=== PATIENT | male | born 1955 | race Caucasian/White ===

== ENCOUNTER → 2018-12-14 | Outpatient (CLI) | payer BC ==
[~2018-12-14] MED LIST: AMLO-125 PO; CLON-327 PO; DAPA10TA PO; FERR325T24 PO; GLIP-175 PO; HYDR-2966 PO; HYDR12.561 PO; LOSA100T75 PO; METF-452 PO; OLME40TA28 PO; OMEG-164 PO; PANT40TA65 PO; ROSU5TAB8 PO; SERT-181 PO; SILD50TA5 PO; SITA1TAB17 PO; VALS160T8 PO; VARI50KI IM; VORT20TA PO
--- NOTE | 2018-12-14 10:52 | RADIOLOGY IMAGING REPORT ---
FAC[place] [facility] [place]IENT NAME: Kosta Desai : 1955 MR: [id number] V: [id number] EXAM DATE: ORDERING PHYSICIAN: VIOLET SMALLWOOD TECHNOLOGIST: [place] [facility] [place] Kosta Desai : 1955 Visit/Account:[id number] Date of Sevice: 12/14/2018 SHOULDER MIN 2 VIEWS LEFT Indication: left shoulder pain Comparison: None. Findings: The left clavicle, scapula, and proximal humerus are intact and demonstrate normal alignmen t. Visualized left ribs are normal. IMPRESSION: Normal left shoulder radiograph. Report Dictated By: Jorge Mcghee at 12/14/2018 10:47 AM Report E-Signed By: Jorge Mcghee at 12/14/2018 10:47 AM WSN:[id number]
== END ==
LOC: RAD 10:14
PROVIDERS: ATTEND Nurse Practitioner Family
DX: M25.512 Pain in left shoulder (principal)

== ENCOUNTER 2019-01-21 09:45 | Outpatient (RCR) | payer BC ==
--- NOTE | 2018-12-19 14:33 | PT INITIAL EVALUATION ---
MEDICAL DIAGNOSIS: L shoulder pain TREATMENT DIAGNOSIS: same DATE OF ONSET: 07/19/18 SUBJECTIVE: Kosta Desai presents to physical therapy with complaints of L shoulder pain that radiates down to his elbow (around his elbow) and down his forearm into his L wrist that started approximately 4 years ago. He reports that he has a history of RTC repairs in 2000 (R) and 2011 (L) that required surgical interventions that made a full recovery. He also reports that he has a history of herniated cervical discs and had a history of increased arthritis in C1-3, which created increase number of headaches; however, he reports that his neck is doing well and only feels pain occasionally. He reports that he is R handed. He reports increased pain with L shoulder horizontal adduction or internal rotation or horizontal adduction combined with flexion. He reports that nothing has made the shoulder feel better in the last four months. He reports that he would like for this pain to go away and get back to his outdoor lifestyle. Pain location is L anterior shoulder, L distal bicep insertional point. Pain scale is 3 on a ten point pain scale. REHAB PROBLEM LIST: Increased Pain Decreased ROM Decreased Strength Decreased Endurance Decreased Function Decreased ADL's PREVIOUS MEDICAL HISTORY: See EMR OCCUPATION: Retired OBJECTIVE: Posture: He demonstrates minimal changes in his posture with forward head, increased thoracic kyphosis, B rounded shoulder, and decreased lumbar lordosis. ROM: Cervical AROM: extension, protrusion, retraction, R/L sidebending, R/L rotation, and flexion: NIL with normal end feels. L shoulder AROM: flexion, abduction, scaption: full with empty end feel; no painful arc. L shoulder IR and ER: full with no pain. Strength: L shoulder flexion, abduction, scaption, IR: 5/5 with no pain. L shoulder ER: 4+/5 with minimal pain. L elbow and wrist: flexion, extension: NIL with no pain. Palpation: TTP: L anterior shoulder, L distal bicep insertional point Special Tests: (+) horizontal adduction, neers, guthrie-guille. (-) painful arc. (+) speeds test. Mobility: Excellent scapulohumeral rhythm Gait: No gait mechanics were noted ASSESSMENT: Kosta will benefit from skilled physical therapy to address the listed impairments to improve function and QOL. Based on the examination that we performed today, it appears that the pain is not coming from the cervical spine and looks to be coming from the L shoulder resulting from impingement in the L shoulder and potential distal biceps tendinopathy that we will treat and return to prior level of activity. Short Term Goals 2 weeks: Pt will demonstrate a directional preference with his shoulder to improve function and QOL. 4 weeks: If pt demonstrates directional preference, he will demonstrate abolished shoulder pain to improve function and QOL. 6 weeks: Pt will demonstrate abolished shoulder pain and return to 5/5 strength in his shoulder to return to prior level of function. Patient's Goals decrease pain, increase strength, and get back to normal activities without any pain PLAN: Patient to be seen for Manual Therapy/STM/MET Strengthening/condition Range of Motion Spinal Stabilization Work Hardening/Cond Stretching Iontophoresis Neuromuscular Re-ed Closed Chain Program Posture/Body mechanics Home Exercise Program Therapeutic Activities 2x/Week for 6 Weeks If you have any questions, comments, or concerns about this report or plan, please contact me at . Thank you, Danial Cook, PT, DPT SASCHA
[~2019-01-21 09:45] MED LIST changes: +CLON-329 PO
--- NOTE | 2019-01-24 13:30 | PT PLAN OF CARE ---
Physician: JD Quispe-C Patient is being seen: 2x/week Therapist: Danial Cook, PT, DPT Medical Diagnosis: L shoulder pain Treatment Diagnosis: same Date of Onset: 07/19/18 Date of Initial Evaluation: 12/18/18 Date patient was last seen: 01/24/19 Number of treatments: 9 Number of cancellations/No shows: 2 INTERVENTIONS: Manual Therapy/STM/MET Strengthening/condition Range of Motion Spinal Stabilization Work Hardening/Cond Stretching Iontophoresis Neuromuscular Re-ed Closed Chain Program Posture/Body mechanics Home Exercise Program Therapeutic Activities GOALS: 2 weeks: Pt will demonstrate a directional preference with his shoulder to improve function and QOL. 4 weeks: If pt demonstrates directional preference, he will demonstrate abolished shoulder pain to improve function and QOL. 6 weeks: Pt will demonstrate abolished shoulder pain and return to 5/5 strength in his shoulder to return to prior level of function. PATIENT'S GOAL: decrease pain, increase strength, and get back to normal activities without any pain Status of Patient's Goals: Met Patient Compliance: Good Prognosis: Good Reasons for continuing therapy: This is a discharge note for Kosta Desai. He reports that he is doing well. He feels like he is 90 to 95% back to his normal. He no longer has pain. He reports that he has full motion with his shoulder and elbow. He reports that if he turns his shoulder and elbow into IR than he has 1/10 localized pain. He states that he has returned to all of his functional activities and feels like he is 1000 times better than prior. He has progressed well. Following his specific exercises, he demonstrated abolished localized elbow pain. He demonstrated a significant improvement in RTC and periscapular strengthening. He has return to prior level of function. He has met all of his goals. He is independent with his home exercise program. As a result, he will be discharged from PT. Posture: He demonstrates minimal changes in his posture with forward head, increased thoracic kyphosis, B rounded shoulder, and decreased lumbar lordosis. ROM: Cervical AROM: extension, protrusion, retraction, R/L sidebending, R/L rotation, and flexion: NIL with normal end feels. L shoulder AROM: flexion, abduction, scaption: full with normalized end feels. L shoulder IR and ER: full with no pain. Strength: L shoulder flexion, abduction, scaption, IR: 5/5 with no pain. L shoulder ER: 5/5 with no pain. L elbow and wrist: flexion, extension: NIL with no pain. Special Tests: (-) horizontal adduction, [place]-guille. (-) painful arc. (+) speeds test. Mobility: Excellent scapulohumeral rhythm If you have any questions, please contact me at [phone]. Thank you, Danial Cook, PT, DPT MTDD
[2019-01-25] MEDS ORDERED: LISI20TA29 PO (16:43)
== END 2019-01-21 18:00 | disposition home or self-care (01) ==
LOC: PT 09:45
PROVIDERS: ATTEND Nurse Practitioner Family
DX: M25.512 Pain in left shoulder (principal)
CPT/HCPCS: 97162

== ENCOUNTER → 2019-01-30 | Outpatient (CLI) | payer BC ==
[~2019-01-30] MED LIST changes: +LISI20TA29 PO
== END ==
LOC: RESP 20:04
PROVIDERS: ATTEND Nurse Practitioner Family
DX: G47.33 Obstructive sleep apnea (adult) (pediatric) (principal); G47.36 Sleep related hypoventilation in conditions classified elsewhere; G47.61 Periodic limb movement disorder

== ENCOUNTER → 2019-03-05 | Outpatient (CLI) | payer BC ==
[~2019-03-05] MED LIST changes: +CPAP
--- NOTE | 2019-03-05 12:24 | RADIOLOGY IMAGING REPORT ---
FACILITY: [facility] - [place] PATIENT NAME: Kosta Desai : 1955 MR: [id number] V: [id number] EXAM DATE: ORDERING PHYSICIAN: VIOLET SMALLWOOD TECHNOLOGIST: Location: [facility] - [place] Patient: Kosta Desai : 1955 Visit/Account:[id number] Date of Sevice: 03/05/2019 Exam type: KNEE 3 VIEW RIGHT History: right knee pain Comparison: None. Findings: Three views of the right knee demonstrates no evidence of acute fracture dislocation or significant a rthritic change. No lytic or blastic bone lesions are seen IMPRESSION: 1. No acute osteoarticular abnormality the right knee is seen. If patient's pain continues MR may b e helpful Report Dictated By: Yi Marie MD at 03/05/2019 12:18 PM Report E-Signed By: Yi Marie MD at 03/05/2019 12:19 PM WSN:[email or web address]
== END ==
LOC: RAD 09:54
PROVIDERS: ATTEND Nurse Practitioner Family
DX: M25.561 Pain in right knee (principal)